=== PATIENT | female | born 1975 | race Two or more races ===

== ENCOUNTER 2024-10-26 10:02 | Outpatient (REF) | payer MEDICAID, SELFPAY ==
[2024-10-26 10:59] LABS: MANUAL DIFF FLAG NO
[2024-10-26 11:12] LABS: Basophils Percent Auto 0.4 % (0-2); Eosinophils Absolute Auto 0.4 X10*3/uL (0.0-0.4); Eosinophils Percent Auto 6.1 % (0-4); Hematocrit 35.1 % (37.0-47.0); Hemoglobin 11.2 g/dl (12.0-16.0); Imm Gran Abs Auto 0.01 X10*3/uL (0.00-0.03); Imm Gran Pct Auto 0.1 % (0.0-0.4); Lymphocytes Absolute Auto 2.2 X10*3/uL (1.2-4.9); Lymphocytes Percent Auto 32.7 % (20-40); Mean Corpuscular HGB Conc 31.9 g/dl (31.0-35.0); Mean Corpuscular Hemoglobin 28.2 pg (27.0-33.0); Mean Corpuscular Volume 88.4 fL (80.0-98.0); Mean Platelet Volume 11.3 fL (9.4-12.3); Monocytes Absolute Auto 0.5 X10*3/uL (0.1-1.2); Monocytes Percent Auto 6.7 % (2-11); Neutrophils Absolute Auto 3.7 x10*3/uL (2.0-8.3); Platelet Count 366 X10*3/uL (160-400); Red Blood Count 3.97 X10*6/uL (4.20-5.50); Red Cell Distribution Width 12.8 % (11.0-16.0); White Blood Count 6.8 X10*3/uL (4.8-10.8)
--- OUTSIDE RECORDS SUMMARY | 2024-10-26 11:15 | XMS_ITS | Encounter Summary ---
Author Organization [employer] Address [address] [place] [address] Care Team Providers Care Improvement Director Name Role Phone Name, Pancho AGUILAR Primary Care Provider [phone] Encounter Details Date Type Department Care Team (Latest Contact Info) Description 10/24/2024 Travel Social History Tobacco Use Types Packs/Day Years Used Date Smoking Tobacco: Every Day Cigarettes Smokeless Tobacco: Never Alcohol Use Standard Drinks/Week Comments Never 0 (1 standard drink = 0.6 oz pur e alcohol) Depression Answer Date Recorded Patient Health Questionnaire-9 Score 10 10/24/2024 Patient Health Questionnaire-9 Score 10 10/24/2024 Last PHQ-9: Questionnaire Data Not on file 0 10/24/2024 Housing Stability Answer Date Recorded What is your housing situation today? I have amador ortiz 10/11/[address] you li ve. Do you have problems with any of the following? None of the above 10/11/2024 Food Insecurity Answer Date Recorded Within the past 12 months, y ou worried that your food would run out before you got money to buy more: Never True 10/11/2024 Within the past 12 months,th e food you bought just didn't last and you didn't have enough money to get more: Never True Transportation Answer Date Recorded In the past 12 months, has l ack of transportation kept you from medical appts, meetings, work or from getting things needed for daily living? No 10/11/2024 Utilities Answer Date Recorded In the past 12 months, has t he electric, gas, oil or water company threatened to shut off services in your home? No 10/11/2024 Depression Answer Date Recorded Patient Health Questionnaire-2 Score 3 10/24/2024 Internet Access Answer Date Recorded Internet Access Q1 Yes 10/11/2024 Internet Access Q2 Not on file 10/11/2024 Comments Unknown Sex and Gender Information Value Date Recorded Sex Assigned at Female 08/18/2024 9:22 AM EST Legal Sex Female 10:39 AM EST Gender Identity Female 08/18/2024 9:26 AM EST Sexual Orientation Don't know 08/18/2024 9: 26 AM EST documented as of this encounter Plan of Treatment Upcoming Encounters Date Type Department Care Team (Late st Contact Info) Description 02/15/2025 3:30 PM EDT Office Visit [facility] [address] [place] [address] Name, MD Pancho [address] [place] [address] documented as of this encounter Visit Diagnoses Not on filedocumented in this encounter Additional Health Concerns Assessment Noted Time PHQ-9 Depression Total Score: 10 025 2:47 PM EDT documented as of this encounter Care Teams Improvement Director Relationship Specialty Start Date End Date Name, MD Pancho [address] [place] [id number] PCP - General Internal Medicine 10/24/24 documented as of this encounter
--- OUTSIDE RECORDS SUMMARY | 2024-10-26 11:15 | XMS_ITS | Clinical Summary ---
Author Organization [employer] Address [address] [facility] [address] [place] [address] Care Team Providers Care Dry Wall Plasterer Name Role Phone Name, Pancho AGUILAR Primary Care Provider [phone] Allergies Active Allergy Reactions Criticality Noted Date Comments Fish-Derived Products Other 04/07/2024 Peanut-Containing Drug Products Other 03/22 Medications * This document contains information received from the source organization and may not represent a complete record from that organization. topiramate (Topamax) 100 MG tablet Take 100 mg by mouth 2 times daily. Active QUEtiapine (SEROquel) 100 MG tablet Take 100 mg by mouth in the evening. Active cloNIDine (Catapres) 0.1 MG tablet Take 0.1 mg by mouth 2 times daily. Active amLODIPine (Norvasc) 10 MG tablet Take 10 mg by mouth Once per day. Active atorvastatin (Lipitor) 40 MG tablet Take 40 mg by mouth Once per day. 5 Active omeprazole (PriLOSEC) [address] capsule Take 40 mg by mouth Once per day. Active methadone (Dolophine) 10 MG/5ML solutionIndicat ions:Substance dependence (CMS/HCC) Take 80 mL (160 mg) by mouth Once per day for 5 days. [facility] 10/30/19 25 Active albuterol 108 (90 Base) MCG/ACT inhaler Inhale 2 puffs every 4 (four) hours if needed. 5 Active albuterol (2.5 MG/3ML) 0.083% nebulizer solution Inhale 2.5 mg every 6 (six) hours if needed. 5 Active albuterol (2.5 MG/3ML) 0.083% nebulizer solution Take 3 mL (2.5 mg) by nebulization every 6 (six) hours if needed for wheezing. 75 mL 10/25/19 Active fluticasone furoate (Arnuity Ellipta) 100 MCG/ACT inhaler Inhale 1 puff Once per day. Rinse mouth with water after use to reduce aftertaste and incidence of candidiasis. Do not swallow. 1 each 10/25/19 Active lidocaine (Lidoderm) 5 % patch Apply 1 patch topically Once per day. Remove & discard patch within 12 hours or as directed by MD. 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 Date Type Department Care Team Description 10/24/2024 2:00 PM EDT Office Visit [facility] MEDICINE [address] [place] [address] Pancho Cueto MD Moderate persistent asthma without complication (Primary Dx); Morbid obesity (CMS/HCC); Substance dependence (CMS/HCC); Seizure (CMS/HCC); Mood disorder (CMS/HCC); Acute low back pain with left-sided sciatica, unspecified back pain laterality 10/24/2024 Travel 10/21/[address] [facility] [address] [place] [address] Melany Perera MA chart prep 10/11/[address] [facility] [address] [place], [place] [phone] Pancho Cueto MD Pre-visit Planning (SDOH negative, Tobacco screening negative.) 09/21/2024 Population Health Risk Score Community [facility] ([facility]) Department [address] [phone] Provider, Population Health Generic 08/12/2024 Patient Outreach [facility] [address] [place] [address] Constance Schuster Recovery Supports 08/04/2024 Patient Outreach [facility] [address] [place] [address] Sarita John Recovery Supports 08/04/2024 Patient Outreach [facility] [address] [place] [address] Bong Rosales Recovery Supports 08/02/2024 Patient Outreach [facility] [address] [place] [address] John Stein Recovery Supports from Last 3 Months Social History Tobacco Use Types Packs/Day Years Used Date Smoking Tobacco: Every Day Cigarettes Smokeless Tobacco: Never Tobacco Cessation:Ready to Q uit: Not Asked; Counseling Given: Not Answered Alcohol Use Standard Drinks/Week Comments Never 0 (1 standard drink = 0.6 oz pur e alcohol) Depression Answer Date Recorded Patient Health Questionnaire-9 Score 10 10/24/2024 Patient Health Questionnaire-9 Score 10 10/24/2024 Last PHQ-9: Questionnaire Data Not on file 0 10/24/2024 Housing Stability Answer Date Recorded What is your housing situation today? I have amadorluis ortiz 10/11/[address] you [...] Don't know 08/18/2024 9: 26 AM EST Last Filed Vital Signs Vital Sign Reading Time Taken Comments Blood Pressure 135/84 10/24/2024 2:19 PM EDT Pulse 76 10/24/2024 2:19 PM EDT Temperature 36.4 ??C (97.5 ??F) 10/24/2024 2:19 PM ED T Respiratory Rate 12 10/24/2024 2:19 PM EDT Oxygen Saturation 97% 10/24/2024 2:19 PM EDT Inhaled Oxygen Concentration - - Weight 112 kg (248 lb) 10/24/2024 2:19 PM EDT Height 160 cm (5' 3 ) 10/24/2024 2:19 PM EDT Body Mass Index 43.93 10/24/2024 2:19 PM EDT Plan of Treatment Upcoming Encounters Date Type Department Care Team (Late st Contact Info) Description 02/15/2025 3:30 PM EDT Office Visit [facility] [address] [place] [address] Name, MD Pancho [address] [place] [address] Health Maintenance Due Date Last Done Comments CT Colonography 1973 Colonoscopy 1973 Colorectal Cancer Screening 1973 FIT DNA/Cologuard 1973 FIT 1973 FOBT 1973 HIV Screening 1973 Lipid Panel 1973 Sigmoidoscopy 1973 Family Planning (PISQ) 1988 Hepatitis C Screening 1991 DTaP/Tdap/Td Vaccines (1 - Tdap) 1992 Hepatitis A Vaccines (1 of 2 - Risk 2-dose series) 1992 Hepatitis B Vaccines (1 of 3 - 19+ 3-dose series) 1992 Pneumococcal Vaccine: 50+ Years (1 of 2 - PCV) 1992 Pap Smear 1994 Cervical Cancer Screening 2003 HPV/Cotest 2003 Mammogram 2013 Zoster Vaccines (1 of 2) 2023 COVID-19 Vaccine (1 - 2023-2 5 season) 2024 Influenza Vaccine (#1) 2024 SDOH Screening 10/11/2025 10/11/2024 Alcohol/Substance Use Screening 10/24/2025 10/24/2024 Depression Screening 10/24/2025 10/24/2024, 10/24/2024 Tobacco Screening 10/24/2025 10/24/2024 RSV Patients and Patients Aged 60 years or older (1 - 1-dose 75+ series) 2048 HIB Vaccines Aged Out No longer eligi ble based on patient's age to complete this topic HPV Vaccines Aged Out No longer eligi ble based on patient's age to complete this topic IPV Vaccines Aged Out No longer eligi ble based on patient's age to complete this topic Meningococcal Vaccine Aged Out No mamta noreen eligible based on patient's age to complete this topic RSV under 20 months Aged Out No longe r eligible based on patient's age to complete this topic Rotavirus Vaccines Aged Out No longer eligible based on patient's age to complete this topic Procedures Procedure Name Priority Date/Time Associated Diagnosis Comments CBC WITH AUTO DIFFERENTIAL Routine 10/26/2024 10:05 AM EDT Substance dependence (CMS/HCC) Seizure (CMS/HCC) Morbid obesity (CMS/HCC) Mood disorder (CMS/HCC) Moderate persistent asthma without complication Acute low back pain with left-sided sciatica, unspecified back pain laterality from Last 3 Months Results * (ABNORMAL) CBC auto differential (10/26/2024 10:05 AM EDT) White Blood Count 6.8 4.8 - 10.8 X10*3/uL [facility] Red Blood Count 3.97(L) 4.20 - 5.50 X10*6/uL [facility] Hemoglobin 11.2(L) 12.0 - 16.0 g/dl [facility] Hematocrit 35.1(L) 37.0 - 47.0 % [facility] Mean Corpuscular Volume 88.4 80.0 - 98.0 fL [facility] Mean Corpuscular Hemoglobin 28.2 27.0 - 33.0 pg [facility] Mean Corpuscular HGB Conc 31.9 31.0 - 35.0 g/dl [facility] Red Cell Distribution Width 12.8 11.0 - 16.0 % [facility] Platelet Count 366 160 - 400 X10*3/uL [facility] Mean Platelet Volume 11.3 9.4 - 12.3 fL [facility] Neutrophils Percent Auto 54.0 45 - 73 % [facility] Imm Gran Pct Auto 0.1 0.0 - 0.4 % [facility] Lymphocytes Percent Auto 32.7 20 - 40 % [facility] Monocytes Percent Auto 6.7 2 - 11 % [facility] Eosinophils Percent Auto 6.1(H) 0 - 4 % [facility] Basophils Percent Auto 0.4 0 - 2 % [facility] NRBC Pct Auto 0.0 0.0 - 0.2 /100WBC [facility] Neutrophils Absolute Auto 3.7 2.0 - 8.3 x10*3/uL [facility] Imm Gran Abs Auto 0.01 0.00 - 0.03 X10*3/uL [facility] Lymphocytes Absolute Auto 2.2 1.2 - 4.9 X10*3/uL [facility] Monocytes Absolute Auto 0.5 0.1 - 1.2 X10*3/uL [facility] Eosinophils Absolute Auto 0.4 0.0 - 0.4 X10*3/uL [facility] Basophils Absolute Auto 0.0 0.0 - 0.2 X10*3/uL [facility] NRBC Abs Auto 0.000 0.0 - 0.012 X10*3/uL [facility] Blood Venous blood specimen / Unknown 10/26/2024 10:05 AM EDT 10/26/2024 10:57 AM EDT us Pancho Cueto MD LAB BLOOD ORDERABLES Final Resul t [facility] [address] [place] [address] [phone] from Last 3 Months Insurance [facility] C[facility] Care Teams Dry Wall Plasterer Relationship Specialty Start Date End Date Name, MD Pancho [address] [place] [address] PCP - General Internal Medicine 10/24/24
--- OUTSIDE RECORDS SUMMARY | 2024-10-26 11:15 | XMS_ITS | Encounter Summary ---
Author Organization [employer] Address [address] [facility] [address] [place] [address] Care Team Providers Care Sap Solution Manager Consultant Name Role Phone Name, Pancho AGUILAR Primary Care Provider [phone] Reason for Visit * Reason Comments New patient visit Encounter Details Date Type Department Care Team (Late st Contact Info) Description 10/24/2024 2:00 PM EDT Office Visit [facility] MED[facility] [address] [place], [place] [phone] Name, MD Pancho [address] [place], [place] [phone] Moderate persistent asthma without complication (Primary Dx); Morbid obesity (CMS/HCC); Substance dependence (CMS/HCC); Seizure (CMS/HCC); Mood disorder (CMS/HCC); Acute low back pain with left-sided sciatica, unspecified back pain laterality Social History Tobacco Use Types Packs/Day Years [...] AM EST documented as of this encounter Last Filed Vital Signs Vital Sign Reading [...] Mass Index 43.93 10/24/2024 2:19 PM EDT documented in this encounter Progress Notes * Pancho Cueto MD - 10/24/2024 2:00 PM EDT Subjective Patient ID: Deanne Underwood is a 49 y.o. female who presents for New patient visit. Patient comes today for the first time to see me. She is transferring her care from a PCP in [facility] and we do not have her previous medical records. The patient has a personal history of mooddisorder, opiate dependence on methadone treatment, morbid obesity, chronic back pain, chronic heartburn, history of seizure disorder, asthma. The patient is following at [facility], she goes to the methadone clinic, she has a prescribing psychiatrist and she has an upcoming appointment with her neurologist. I updated her medication list. She is vaping nicotine. She denies use of alcohol. She has not used illicits in more than a year. She is not sexually active at the moment. She has 2 children that lives with her former partner. Today she is concerned about significant weight gain and one of her medications is Seroquel. She also asked me to refill her albuterol. She has been using albuterol up to 3 times a day. She isnot using a preventive inhaler. She asked me to prescribe her lidocaine patches she applies to the low back for chronic back pain. Review of Systems Constitutional: Negative for chills and fever. HENT: Negative for sore throat. Respiratory: Positive for cough and wheezing. Negative for shortness of breath. Cardiovascular: Negative for chest pain, palpitations and leg swelling. Gastrointestinal: Negative for abdominal pain. Musculoskeletal: Positive for back pain. Visit Vitals BP 135/84 (BP Location: Left arm, Patient Position: Sitting, BP Cuff Size: Large adult) Pulse 76 Temp 97.5 ??F (36.4 ??C) (Temporal) Resp 12 Ht 5' 3 (1.6 m) Wt 248 lb (112 kg) SpO2 97% BMI 43.93 kg/m?? Smoking Status Every Day BSA 2.23 m?? Objective Physical Exam Constitutional: Appearance: Normal appearance. She is obese. Cardiovascular: Rate and Rhythm: Normal rate and regular rhythm. Heart sounds: No murmur heard. No gallop. Pulmonary: Effort: Pulmonary effort is normal. No respiratory distress. Breath sounds: Normal breath sounds. No wheezing. Musculoskeletal: Right lower leg: No edema. Left lower leg: No edema. Neurological: Mental Status: She is alert. Assessment/Plan Diagnoses and all orders for this visit: Moderate persistent asthma without complication Comments: I recommend the patient to try to quit vaping. Continue rescue albuterol. Prescribed the patient Arnuity for daily use. Orders: - CBC auto differential; Future - Comprehensive Metabolic Panel; Future - Hemoglobin A1c; Future - TSH W/Reflex to FT4; Future - Lipid Panel, Standard; Future Morbid obesity ([facility]) Comments: I recommended evaluation with fasting blood work listed below. No personal history of pancreatitis no personal or family h/o thyroid CA Orders: - CBC auto differential; Future - Comprehensive Metabolic Panel; Future - Hemoglobin A1c; Future - TSH W/Reflex to FT4; Future - Lipid Panel, Standard; Future Substance dependence ([facility]) Comments: She is congratulated on quitting heroin. She is encouraged to continue following with her methadone clinic and [facility]. She has Narcan at home. She tells me she recently had negative STD testing done elsewhere. Orders: - methadone (Dolophine) 10 MG/5ML solution; Take 80 mL (160 mg) by mouth Once per day for [address] [facility] - CBC auto differential; Future - Comprehensive Metabolic Panel; Future - Hemoglobin A1c; Future - TSH W/Reflex to FT4; Future - Lipid Panel, Standard; Future Seizure ([facility]) Comments: Patient is currently on Topamax that she is recommended to continue. She is encouraged to keep upcoming appointment with neurology. She does not drive. She denies any recent seizures. Orders: - CBC auto differential; Future - Comprehensive Metabolic Panel; Future - Hemoglobin A1c; Future - TSH W/Reflex to FT4; Future - Lipid Panel, Standard; Future Mood disorder ([facility]) Comments: . Orders: - CBC auto differential; Future - Comprehensive Metabolic Panel; Future - Hemoglobin A1c; Future - TSH W/Reflex to FT4; Future - Lipid Panel, Standard; Future Acute low back pain with left-sided sciatica, unspecified back pain laterality Comments: Musculoskeletal low back pain. I agreed to prescribe her lidocaine patches. Orders: - CBC auto differential; Future - Comprehensive Metabolic Panel; Future - Hemoglobin A1c; Future - TSH W/Reflex to FT4; Future - Lipid Panel, Standard; Future Other orders - albuterol (2.5 MG/3ML) 0.083% nebulizer solution; Take 3 mL (2.5 mg) by nebulization every 6 (six) hours if needed for wheezing. - fluticasone furoate (Arnuity Ellipta) 100 MCG/ACT inhaler; Inhale 1 puff Once per day. Rinse mouth with water after use to reduce aftertaste and incidence of candidiasis. Do not swallow. - lidocaine (Lidoderm) 5 % patch; Apply 1 patch topically Once per day. Remove & discard patch within 12 hours or as directed by . documented in this encounter Plan of Treatment Upcoming Encounters Date Type Department Care Team (Late st Contact Info) Description 02/15/2025 3:30 PM EDT Office Visit [facility] MEDICINE [address] [place] [address] Pancho Cueto MD [address] [place] [address] Scheduled Orders Name Type Priority Associated Diagnoses Orde r Schedule Comprehensive Metabolic Panel Lab Routine Substance dependence (CMS/HCC) Seizure (CMS/HCC) Morbid obesity (CMS/HCC) Mood disorder (CMS/HCC) Moderate persistent asthma without complication Acute low back pain with left-sided sciatica, unspecified back pain laterality Expected: 10/24/2024 (Approximate), Expires: 10/24/2025 Hemoglobin A1c Lab Routine Substance dependence (CMS/HCC) Seizure (CMS/HCC) Morbid obesity (CMS/HCC) Mood disorder (CMS/HCC) Moderate persistent asthma without complication Acute low back pain with left-sided sciatica, unspecified back pain laterality Expected: 10/24/2024 (Approximate), Expires: 10/24/2025 TSH W/Reflex to FT4 Lab Routine Substance dependence (CMS/HCC) Seizure (CMS/HCC) Morbid obesity (CMS/HCC) Mood disorder (CMS/HCC) Moderate persistent asthma without complication Acute low back pain with left-sided sciatica, unspecified back pain laterality Expected: 10/24/2024 (Approximate), Expires: 10/24/2025 Lipid Panel, Standard Lab Routine Substance dependence (CMS/HCC) Seizure (CMS/HCC) Morbid obesity (CMS/HCC) Mood disorder (CMS/HCC) Moderate persistent asthma without complication Acute low back pain with left-sided sciatica, unspecified back pain laterality Expected: 10/24/2024 (Approximate), Expires: 10/24/2025 documented as of this encounter Procedures Procedure Name Priority Date/Time Associated Diagnosis Comments CBC WITH AUTO DIFFERENTIAL Routine 10/26/2024 10:05 AM EDT Substance dependence (CMS/HCC) Seizure (CMS/HCC) Morbid obesity ([facility]/HCC) Mood disorder ([facility]) Moderate persistent asthma without complication Acute low back pain with left-sided sciatica, unspecified back pain laterality documented in this encounter Results * (ABNORMAL) CBC auto differential (10/26/2024 10:05 AM EDT) White Blood Count 6.8 4.8 - 10.8 X10*3/uL [facility] Red Blood Count 3.97(L) 4.20 - 5.50 X10*6/uL [facility] Hemoglobin 11.2(L) 12.0 - 16.0 g/dl [facility] Hematocrit 35.1(L) 37.0 - 47.0 % [facility] Mean Corpuscular Volume 88.4 80.0 - 98.0 fL [facility] Mean Corpuscular Hemoglobin 28.2 27.0 - 33.0 pg [facility] Mean Corpuscular HGB Conc 31.9 31.0 - 35.0 g/dl [facility] Red Cell Distribution Width 12.8 11.0 - 16.0 % [facility] Platelet Count 366 160 - 400 X10*3/uL [facility] Mean Platelet Volume 11.3 9.4 - 12.3 fL [facility] Neutrophils Percent Auto 54.0 45 - 73 % [facility] Imm Gran Pct Auto 0.1 0.0 - 0.4 % [facility] Lymphocytes Percent Auto 32.7 20 - 40 % [facility] Monocytes Percent Auto 6.7 2 - 11 % [facility] Eosinophils Percent Auto 6.1(H) 0 - 4 % [facility] Basophils Percent Auto 0.4 0 - 2 % [facility] NRBC Pct Auto 0.0 0.0 - 0.2 /100WBC [facility] Neutrophils Absolute Auto 3.7 2.0 - 8.3 x10*3/uL [facility] Imm Gran Abs Auto 0.01 0.00 - 0.03 X10*3/uL [facility] Lymphocytes Absolute Auto 2.2 1.2 - 4.9 X10*3/uL [facility] Monocytes Absolute Auto 0.5 0.1 - 1.2 X10*3/uL [facility] Eosinophils Absolute Auto 0.4 0.0 - 0.4 X10*3/uL [facility] Basophils Absolute Auto 0.0 0.0 - 0.2 X10*3/uL [facility] NRBC Abs Auto 0.000 0.0 - 0.012 X10*3/uL [facility] Blood Venous blood specimen / Unknown 10/26/2024 10:05 AM EDT 10/26/2024 10:57 AM EDT Pancho Cueto MD LAB BLOOD ORDERABLES Final Resul t [facility] [address] [place] [phone] documented in this encounter Visit Diagnoses Diagnosis Moderate persistent asthma without complication- Primary Morbid obesity (CMS/HCC) Morbid obesity Substance dependence (CMS/HCC) Unspecified drug dependence, unspecified abuse Seizure (CMS/HCC) Other convulsions Mood disorder (CMS/HCC) Unspecified episodic mood disorder Acute low back pain with left-sided sciatica, unspecified back pain laterality documented in this encounter Additional Health Concerns Assessment Noted Time PHQ-9 Depression Total Score: 10 025 2:47 PM EDT documented as of this encounter Care Teams Sap Solution Manager Consultant Relationship Specialty Start Date End Date Name, MD Pancho [address] [place] [phone] PCP - General Internal Medicine 10/24/24 documented as of this encounter
--- OUTSIDE RECORDS SUMMARY | 2024-10-26 11:15 | XMS_ITS | Encounter Summary ---
Author Organization [employer] Address [address] [facility] 7t [place] [address] Care Team Providers Care Dray Truck Driver Name Role Phone Unavailable Primary Care Provider Unavailabl e Reason for Visit * Reason Onset Date Comments chart prep 10/21/2024 Encounter Details Date Type Department Care Team ([facility] st Contact Info) Description 10/21/2024 Telephone [facility] [address] [place], [place] [phone] Melany Perera MA chart prep Social History Tobacco Use Types Packs/Day Years Used Date Smoking Tobacco: Never Assessed Housing Stability Answer Date Recorded What is [...] off services in your home? No 10/11/2024 Internet Access Answer Date Recorded Internet Access Q1 Yes 10/11/2024 Internet Access Q2 Not on file 10/11/2024 Comments Unknown Sex and Gender Information Value Date Recorded Sex Assigned at Female 08/18/2024 9:22 AM EST Legal Sex Female 10:39 AM EST Gender Identity Female 08/18/2024 9:26 AM EST Sexual Orientation Don't know 08/18/2024 9: 26 AM EST documented as of this encounter Miscellaneous Notes * Telephone Encounter - Melany Perera MA - 10/21/2024 2:14 PM EDT Chart Prep Labs: not applicable Images: not applicable Referrals: not applicable Vaccines due: Flu, Tdap, Hep B, Hep A, and Zoster Screenings: mammogram and pap smear Overdue care gaps: SBIRT, PHQ-9, EVETTE-7, and Disability screen documented in this encounter Plan of Treatment Upcoming Encounters Date Type Department Care Team (Late st Contact Info) Description 02/15/2025 3:30 PM EDT Office Visit [facility] [address] [place] [address] Name, MD Pancho [address] [place] [address] documented as of this encounter Visit Diagnoses Not on filedocumented in this encounter
[2024-10-26 11:16] LABS: Estimated Average Glucose 128 mg/dL; Hemoglobin A1C 128.7411 umol/L; Hemoglobin A1c % 6.1 % (<6.0); Total Hemoglobin (HGBA1C) 2983.5579 umol/L
[2024-10-26 12:15] LABS: Alanine Aminotransferase 21 U/L (0-31); Albumin Level 3.8 g/dL (3.5-5.0); Anion Gap 10 (12-20); Aspartate Amino Transferase 32 U/L (5-31); Calcium 9.6 mg/dL (8.4-10.2); Carbon Dioxide 28 mmol/L (22-29); Chloride 106 mmol/L (96-108); Cholesterol 147 mg/dL (<200); Glucose Random 85 mg/dL (60-115); Sodium 140 mmol/L (135-145); Total Protein 7.3 g/dL (6.5-8.0); Triglycerides 107 mg/dL (<150)
[2024-10-26 12:23] LABS: Alkaline Phosphatase 132 U/L (39-117); Bilirubin Total 0.2 mg/dL (0.0-1.0); Blood Urea Nitrogen 11 mg/dL (9-16); Estimated Glomerular Filt Rate > 60; HDL Cholesterol 49 mg/dL (>40); LDL Cholesterol Calculated 77 mg/dL (<100)
[2024-10-26 12:31] LABS: TSH reflex Free T4 1.85 uIU/mL (0.32-4.0)
== END 2024-10-26 10:03 | disposition home or self-care (01) ==
LOC: HO.HHCL 10:02
PROVIDERS: Visit Provider Internal Medicine Geriatric Medicine
DX: J45.40 Moderate persistent asthma, uncomplicated (principal); F19.20 Other psychoactive substance dependence, uncomplicated; R56.9 Unspecified convulsions; E66.01 Morbid (severe) obesity due to excess calories; M54.42 Lumbago with sciatica, left side; F39 Unspecified mood [affective] disorder
CPT/HCPCS: 36415; 80053; 80061; 83036; 84443; 85025

== ENCOUNTER 2025-02-15 15:27 | Outpatient (REF) | payer MEDICAID, SELFPAY ==
--- NOTE | ~2025-02-15 | XR_ITS ---
EXAMINATION: XR KNEE, LEFT CLINICAL INFORMATION: PAIN COMPARISON: None available. TECHNIQUE: Four views of the left knee. FINDINGS: There is mild narrowing of the medial joint space. Tricompartmental marginal osteophytes are largest along the medial joint line. Joint effusion is visible. XR/XR knee LT 4V IMPRESSION: Mild osteoarthritis left knee. Electronically signed by: Uday Mittal MD 02/15/2025 03:56 PM EDT
--- OUTSIDE RECORDS SUMMARY | 2025-02-15 15:30 | XMS_ITS | Encounter Summary ---
Author Organization [employer] [facility] Address [address] [facility] 7t [place] [address] Care Team Providers Care Associate Financial Planner Name Role Phone Pancho Cueto MD Primary Care Provider [phone] Reason for Referral * Consultation (Routine) - Pending Review Specialty Diagnoses / Procedures Referred By Neva t Referred To Contact Gastroenterology Diagnoses Screen for colon cancer Pancho Cueto MD [address] [place] [address] Phone: tel: fax: Referral ID Status Reason Start Date Expiration Date Visits Requested Visits Authorized [id number] Pending Review Specialty Services Required 02/15/2025 02/15/2026 1 1 * Consultation (Routine) - Authorized Specialty Diagnoses / Procedures Referred By Neva t Referred To Contact Midwifery Diagnoses Screening for cervical cancer Pancho Cueto MD [address] [place] [address] Phone: tel: fax: Aniyah Mehta CNM [address] [place] [address] Phone: tel: fax: Referral ID Status Reason Start Date Expiration Date Visits Requested Visits Authorized [id number] Authorized Consult and Treat 02/15/2025 02/15/2026 1 1 * Imaging (Routine) - Authorized Specialty Diagnoses / Procedures Referred By Neva t Referred To Contact Radiology Diagnoses Encounter for screening for malignant neoplasm of breast, unspecified screening modality Procedures BI Mammogram Screening Tomosynthesis Bilateral Pancho Cueto MD [address] [place] [address] Phone: tel: fax: [address] Phone: tel: fax: Referral ID Status Reason Start Date Expiration Date V isits Requested Visits Authorized [id number] Authorized 02/15/2025 02/15/2026 1 1 Reason for Visit * Reason Comments Follow-up Encounter Details Date Type Department Care Team (Late st Contact Info) Description 02/15/2025 3:30 PM EDT Office Visit [facility] [address] [place] [address] Pancho Cueto MD [address] [place] [address] Hypertension, unspecified type (Primary Dx); Gastroesophageal reflux disease, unspecified whether esophagitis present; Chronic pain of left knee; Health care maintenance; Encounter for screening for malignant neoplasm of breast, unspecified screening modality; Screening for cervical cancer; Screen for colon cancer; Encounter for immunization Social History Tobacco Use Types Packs/Day Years [...] Sign Reading Time Taken Comments Blood Pressure 132/84 02/15/2025 2:43 PM EDT Pulse 94 02/15/2025 2:43 PM EDT Temperature 35.9 C (96.6 F) 02/15/2025 2:43 PM EDT Respiratory Rate 18 02/15/2025 2:43 PM EDT Oxygen Saturation 98% 02/15/2025 2:43 PM EDT Inhaled Oxygen Concentration - - Weight 107 kg (236 lb 9.6 oz) 02/15/2025 2:43 PM EDT Height 160 cm (5' 3 ) 02/15/2025 2:43 PM EDT Body Mass Index 41.91 02/15/2025 2:43 PM EDT documented in this encounter Progress Notes * Pancho Cueto MD - 02/15/2025 3:30 PM EDT Subjective Patient ID: Deanne Underwood is a 49 y.o. female who presents for Follow-up. Patient comes for a follow-up visit. She has lost significant weight compared to her previous visitwith dietary changes and exercise and is congratulated. Unfortunately she is complaining of left knee pain for about 3 months. She tells me that she was trying to run and she felt like the left knee gave out and she fell. Since then she is having left anterior knee pain precipitated by standing and walking. She also describes left knee swelling on and off. Pain is described as occasionally severe. She tells me she has a remote history of fracture of the left knee. On review of health maintenance schedule she is due for a mammogram, Pap smear and colonoscopy and she agreed with referral. She agreed with Tdap vaccination today. She continues to do well on methadone. She has not used heroin in more than a year. She is trying to cut down on her smoking and she is congratulated and encouraged to continue. Review of Systems Constitutional: Negative for chills and fever. HENT: Negative for sore throat. Respiratory: Negative for cough, shortness of breath and wheezing. Cardiovascular: Negative for chest pain, palpitations and leg swelling. Gastrointestinal: Negative for abdominal pain. Musculoskeletal: See HPI Objective Vitals: 02/15/25 1443 BP: 132/84 BP Location: Left arm Patient Position: Sitting BP Cuff Size: Thigh Pulse: 94 Resp: 18 Temp: 96.6 ??F (35.9 ??C) TempSrc: Temporal SpO2: 98% Weight: 236 lb 9.6 oz (107 kg) Height: 5' 3 (1.6 m) Physical Exam Constitutional: Appearance: Normal appearance. Cardiovascular: Rate and Rhythm: Normal rate and regular rhythm. Heart sounds: No murmur heard. No gallop. Pulmonary: Effort: Pulmonary effort is normal. No respiratory distress. Breath sounds: Normal breath sounds. No wheezing. Musculoskeletal: Right knee: Normal. Left knee: Decreased range of motion. Tenderness present over the patellar tendon. Right lower leg: No edema. Left lower leg: No edema. Comments: Antalgic gait Neurological: Mental Status: She is alert. Assessment/Plan Diagnoses and all orders for this visit: Hypertension, unspecified type Comments: I refilled her amlodipine Gastroesophageal reflux disease, unspecified whether esophagitis present Comments: I refilled her omeprazole Chronic pain of left knee Comments: The patient has been icing his knee after walking and she is encouraged to continue doing this. She is encouraged to continue her efforts to lose weight She was prescribed Celebrex for pain Evaluation with left knee x-ray I suggested referral to PT but she wants to wait for now. Orders: - XR Knee 3 Views Left; Future Health care maintenance Comments: I recommended referral to mammogram Referral to CRITICAL CARE NURSE SPECIALIST for Pap smear Referral to GI for screening colonoscopy Continue her efforts to lose weight Continue her efforts to quit smoking Tdap vaccine today and hopefully PCV 20 next visit Encounter for screening for malignant neoplasm of breast, unspecified screening modality - BI Mammogram Screening Tomosynthesis Bilateral; Future Screening for cervical cancer - Referral to Gynecology (Aniyah); Future Screen for colon cancer - Referral to Gastroenterology; Future Encounter for immunization - TDAP VACCINE 7 yrs + Other orders - amLODIPine (Norvasc) 10 MG tablet; Take 1 tablet (10 mg) by mouth Once per day. - omeprazole (PriLOSEC) [address] capsule; Take 2 capsules (40 mg) by mouth Once per day. - celecoxib (CeleBREX) 200 MG capsule; Take 1 capsule (200 mg) by mouth 2 times daily for 20 days. Future Appointments Date Time Provider Department Center 02/15/2025 3:30 PM Pancho Cueto MD MEDICINE [facility] 05/08/2025 2:30 PM Pancho Cueto MD [facility] documented in this encounter Plan of Treatment Upcoming Encounters Date Type Department Care Team (Late st Contact Info) Description 05/08/2025 2:30 PM EST Office Visit [facility] [address] [place] [phone] Pancho Cueto MD [address] [place] [address] Scheduled Orders Name Type Priority Associated Diagnoses Orde r Schedule BI Mammogram Screening Tomosynthesis Bilateral Imaging Routine Encounter for screening for malignant neoplasm of breast, unspecified screening modality Expected: 02/15/2025, Expires: 04/17/2026 Scheduled Referrals Name Type Priority Associated Diagnoses Order Schedule Referral to Gynecology (Aniyah) Outpatient Referral Routine Screening for cervical cancer Expected: 02/15/2025 (Approximate), Expires: 02/15/2026 Referral to Gastroenterology Outpatient Referral Routine Screen for colon cancer Expected: 02/15/2025 (Approximate), Expires: 02/15/2026 documented as of this encounter Procedures Procedure Name Priority Date/Time Associated Diagnosis Comments XR KNEE 4+ VIEWS LEFT Routine 02/15/2025 2:58 PM EDT documented in this encounter Results * XR Knee 4+ Views Left (02/15/2025 2:58 PM EDT) Anatomical Region Laterality Modality Lower Extremities, Knee Left Radiogra phic Imaging 02/15/2025 2:58 PM EDT Narrative 02/15/2025 4:00 PM EDT [address] [address] XRay Report Signed Patient: Deanne Underwood MR#: [id number] : 1975 Acct:[id number] Age/Sex: 49 / F ADM Date: 02/15/25 Loc: HO.HHCX Attending Dr: Pancho Cueto MD Ordering Physician: Pancho Cueto MD Date of Service: 02/15/25 Procedure(s): XR knee LT 4V Accession Number(s): [id number] cc: Pancho Cueto MD EXAMINATION: XR KNEE, LEFT CLINICAL INFORMATION: PAIN COMPARISON: None available. TECHNIQUE: Four views of the left knee. FINDINGS: There is mild narrowing of the medial joint space. Tricompartmental marginal osteophytes are largest along the medial joint line. Joint effusion is visible. XR/XR knee LT 4V IMPRESSION: Mild osteoarthritis left knee. Electronically signed by: Uday Mittal MD 02/15/2025 03:56 PM EDT Dictated By: Uday Mittal MD Signed By: <Electronically signed by Uday Mittal MD in OV> 02/15/25 1556 DD/ 1458 TD/TT: 02/15/25 1500 Program Director/Music Director: Procedure Note Mohsenter, Image - 02/15/[address] [address] XRay Report Signed Patient: Deanne UnderwoodMR#: [id number] : 1975Acct:[id number] Age/Sex: 49 / FADM Date: 02/15/25 Loc: HO.HHCX Attending Dr: Pancho Cueto MD Ordering Physician: Pancho Cueto MD Date of Service: 02/15/25 Procedure(s): XR knee LT 4V Accession Number(s): [id number] cc: Pancho Cueto MD EXAMINATION: XR KNEE, LEFT CLINICAL INFORMATION: PAIN COMPARISON: None available. TECHNIQUE: Four views of the left knee. FINDINGS: There is mild narrowing of the medial joint space. Tricompartmental marginal osteophytes are largest along the medial joint line. Joint effusion is visible. XR/XR knee LT 4V IMPRESSION: Mild osteoarthritis left knee. Electronically signed by: Uday Mittal MD 02/15/2025 03:56 PM EDT RP Dictated By: Uday Mittal MD Signed By: <Electronically signed by Uday Mittal MD in OV> 02/15/25 1556 DD/ 1458 TD/TT: 02/15/25 1500 Program Director/Music Director: Pancho Cueto MD IMG XR PROCEDURES Final Result documented in this encounter Visit Diagnoses Diagnosis Hypertension, unspecified type- Primary Gastroesophageal reflux disease, unspecified whether esophagitis present Chronic pain of left knee Encounter for screening for malignant neoplasm of breast, unspecified screening modality Screening for cervical cancer Screening for malignant neoplasm of the cervix documented in this encounter Additional Health Concerns Assessment Noted Time PHQ-9 Depression Total Score: 10 025 2:47 PM EDT documented as of this encounter Care Teams Associate Financial Planner Relationship Specialty Start Date End Date Pancho Cueto MD [address] [place] [address] PCP - General Internal Medicine 10/24/24 documented as of this encounter
--- OUTSIDE RECORDS SUMMARY | 2025-02-15 16:43 | XMS_ITS | Clinical Summary ---
Author Organization [facility] Address [address] [place] [address] Phone Care Team Providers Care Make Up Man Name Role Phone StefanyLaura Primary Care Provider [phone] Allergies Active Allergy Reactions Criticality Noted Date Comments Fish Containing Products Other 04/07/2024 Peanut Other 04/07/2024 Medications amLODIPine (NORVASC) 10 mg tablet Take 1 tablet (10 mg total) by mouth 1 (one) time each day. Active cloNIDine (CATAPRES) 0.1 mg tablet Take 1 tablet (0.1 mg total) by mouth 2 (two) times a day. Active gabapentin (NEURONTIN) 300 mg capsule Take 1 capsule (300 mg total) by mouth 2 (two) times a day. Active methadone HCl (METHADONE ORAL) Take 100 mg by mouth 1 (one) time each day. 40 MG disintegrating tablet Active QUEtiapine (SEROquel) 100 mg tablet Take 1 tablet (100 mg total) by mouth 1 (one) time each day in the evening. Active topiramate (TOPAMAX) 100 mg tablet Take 1 tablet (100 mg total) by mouth 2 (two) times a day. Active polyethylene glycol (Golytely) 236-22.74-6.74 -5.86 gram solution Take 4L by mouth once for one dose. May substitue any PEG. Starting at 6PM the night before your procedure drink 1 8oz glasses at your own pace until you complete half of the gallon. Finish 2nd half of the gallon 5 hours before your procedure. 4000 mL 5 Active bisacodyL (DULCOLAX) 5 mg EC tablet Take 2 tablets by mouth right before beginning bowel prep. See instructions provided by the office 2 tablet 5 Active albuterol 2.5 mg /3 mL (0.083 %) nebulizer solution Take 3 mL (2.5 mg total) by nebulization every 6 (six) hours if needed for wheezing or shortness of breath. 90 mL 5 Active polyethylene glycol (Golytely) 236-22.74-6.74 -5.86 gram solution Take 4L by mouth once for one dose. May substitue any PEG. Starting at 6PM the night before your procedure drink 1 8oz glasses at your own pace until you complete half of the gallon. Finish 2nd half of the gallon 5 hours before your procedure. 4000 mL 5 Active bisacodyL (DULCOLAX) 5 mg EC tablet Take 2 tablets by mouth right before beginning bowel prep. See instructions provided by the office 2 tablet 5 Active nicotine polacrilex (NICORETTE) 2 mg gum 1 each (2 mg total). 4 Active polyethylene glycol (Golytely) 236-22.74-6.74 -5.86 gram solution Take 4L by mouth once for one dose. May substitue any PEG. Starting at 6PM the night before your procedure drink 1 8oz glasses at your own pace until you complete half of the gallon. Finish 2nd half of the gallon 5 hours before your procedure. 4000 mL 5 Active bisacodyL (DULCOLAX) 5 mg EC tablet Take 2 tablets by mouth right before beginning bowel prep. See instructions provided by the office 2 tablet 5 Active albuterol HFA (Ventolin HFA) 90 mcg/actuation inhaler Inhale 2 puffs by mouth every 4 (four) hours if needed for wheezing or shortness of breath. 18 g 5 Active atorvastatin (LIPITOR) 40 mg tablet Take 1 tablet (40 mg total) by mouth 1 (one) time each day. 30 tablet 5 Active omeprazole (PriLOSEC) [address] capsule TAKE 2 CAPSULES BY MOUTH DAILY 60 capsule 07/15/202 5 Active Active Problems Problem Noted Date Diagnosed Date Gastroesophageal reflux disease 04/07/2024 Hypertension 04/07/2024 Methadone dependence ([facility] [place] [facility] [place] 04/07/2024 Seizure ([facility] [place], [facility] [place]) 04/07/2024 Substance dependence ([facility] [place], [facility] [place]) 04/07/2024 Encounters Date Type Department Care Team Description 11/16/2024 Telephone Internal [facility] [address] [place] [phone] Laura Mccall DO from Last 3 Months Medical History Medical History Date Comments Seizures ([facility] [place], [facility] [place] DX:Seizures (HCC) Bipolar disorder ([facility] [place]2 4, [facility] [place]28) DX:Bipolar disorder (HCC) GERD (gastroesophageal reflux disease) DX:GERD (gastroesophageal reflux disease) HTN (hypertension) DX:HTN (hyper tension) Family History Medical History Relation Name Comments Breast cancer Aunt Other cancer Sister 1 Diabetes Sister 2 Relation Name Status Comments Aunt Sister 1 Sister 2 Alive Social History Tobacco Use Types Packs/Day Years Used Date Smoking Tobacco: Every Day Alcohol Use Standard Drinks/Week Comments Never 0 (1 standard drink = 0.6 oz pur e alcohol) Comments Unknown Sex and Gender Information Value Date Recorded Sex Assigned at Female 09/09/2024 10:44 AM EDT Legal Sex Female 11:13 PM EST Gender Identity Female 09/09/2024 10:44 AM EDT Sexual Orientation Straight 09/28/2024 1: 18 PM EDT Obstetrics History Last Filed Vital Signs Vital Sign Reading Time Taken Comments Blood Pressure 140/80 04/01/2024 8:54 AM EDT aut o Pulse 80 04/01/2024 8:54 AM EDT Temperature - - Respiratory Rate - - Oxygen Saturation - - Inhaled Oxygen Concentration - - Weight 86.2 kg (190 lb) 09/13/2024 1:00 PM EDT Height 160 cm (5' 3 ) 09/13/2024 1:00 PM EDT Body Mass Index 33.66 09/13/2024 1:00 PM EDT Plan of Treatment Health Maintenance Due Date Last Done Comments Breast Cancer Screening 1975 DTaP,Tdap,and Td Vaccines (1 - Tdap) 1992 Hepatitis A Vaccines (1 of 2 - Risk 2-dose series) 1992 Hepatitis B Vaccines (1 of 3 - 19+ 3-dose series) 1992 Pneumococcal Vaccine: 50+ Years (1 of 2 - PCV) 1992 Cervical Cancer Screening: P ap Smear 1994 Colorectal Cancer Screening: Colonoscopy 05/25/2022 HIV Screening 05/25/2022 Social Influencers of Health Screening 05/25/2022 Zoster Vaccines (1 of 2) 2023 COVID-19 Vaccine (1 - 2023-2 5 season) 2024 Depression Screening 06/22/2024 04/01/2024 Influenza Vaccine (#1) 2025 Hypertension/CHF/CAD Annual BMP Blood Test 04/01/2025 04/01/2024, 04/01/2024 Cholesterol Screening (Lipid Panel) 04/01/2029 04/01/2024, 04/01/2024 Hepatitis C Screening Completed 04/01/2024 HIB Vaccines Aged Out No longer eligi ble based on patient's age to complete this topic HPV Vaccines Aged Out No longer eligi ble based on patient's age to complete this topic IPV Vaccines Aged Out No longer eligi ble based on patient's age to complete this topic MMR Vaccines Aged Out No longer eligi ble based on patient's age to complete this topic Meningococcal ACWY Vaccine Aged Out N o longer eligible based on patient's age to complete this topic Meningococcal B Vaccine Aged Out No l onger eligible based on patient's age to complete this topic RSV Immunization Patients Under 20 months Aged Out No longer eligible b ased on patient's age to complete this topic Varicella Vaccines Aged Out No longer eligible based on patient's age to complete this topic Procedures Procedure Name Priority Date/Time Associated Diagnosis Comments DEPRESSION SCREENING Routine 04/01/2024 HEPATITIS C SCREENING Routine 04/01/2024 ANNUAL BMP BLOOD TEST Routine 04/01/2024 LIPID PANEL Routine 04/01/2024 from Last 3 Months or Most Recently Relevant to Health Maintenance Results * Annual BMP Blood Test (04/01/2024) Pathologist [facility] Annual BMP Blood Test abstracted [facility] Provider MD HEALTH MAINTENANCE Final Result * Depression Screening (04/01/2024) Pathologist [facility] Depression Screening abstracted [facility] Provider HEALTH MAINTENANCE Final Result * Hepatitis C Screening (04/01/2024) [facility] Hepatitis C Screening abstracted [facility] Provider HEALTH MAINTENANCE Final Result * (ABNORMAL) Lipid panel (04/01/2024) [facility] LDL/HDL Ratio 3 0 - 4 Triglycerides 167(A) 0 - 150 mg/dL Cholesterol 242(A) 0 - 200 mg/dL HDL 74 >=40 mg/dL LDL Cholesterol 135(A) 0 - 100 mg/dL Blood Venous blood specimen / Unknown Result [facility] Provider LAB BLOOD ORDERABLES Tricia l Result from Last 3 Months or Most Recently Relevant to Health Maintenance Insurance MEDICAID - [place] Care Teams Make Up Man Relationship Specialty Start Date End Date Laura Mccall DO [address] [place] [address] [facility] - General 03/24/24
--- OUTSIDE RECORDS SUMMARY | 2025-02-15 16:43 | XMS_ITS | Encounter Summary ---
Author Organization [employer] Address [address] [facility] 7t [place] [address] Care Team Providers Care Salesperson Flowers Name Role Phone Name, Pancho AGUILAR Primary Care Provider [phone] Reason for Visit * Reason Onset Date Comments chart prep 02/14/2025 Encounter Details Date Type Department Care Team ([facility] st Contact Info) Description 02/14/2025 Telephone [facility] [address] [place], [place] [phone] Name, MD Pancho [address] [place], [place] [phone] chart prep Social History Tobacco Use Types [...] encounter Miscellaneous Notes * Telephone Encounter - Diane Finney MA - 02/14/2025 2:23 PM EDT Chart Prep Labs: done Images: not applicable Screenings: Colonoscopy , Mammogram, and HIV screening, PAP Vaccines due: Covid Due, Tdap Due, Hep A Due, Hep B Due, PCV20 Due, and Shingles in pharmacy Due Referrals: Not Applicable Overdue care gaps: None documented in this encounter Plan of Treatment Upcoming Encounters Date Type Department Care Team (Late st Contact Info) Description 05/08/2025 2:30 PM EST Office Visit [facility] [address] [place] [phone] Name, MD Pancho [address] [place] [address] documented as of this encounter Visit Diagnoses Not on filedocumented in this encounter Additional Health Concerns Assessment Noted Time PHQ-9 Depression Total Score: 10 025 2:47 PM EDT documented as of this encounter Care Teams Salesperson Flowers Relationship Specialty Start Date End Date NamePancho MD [address] [place] [address] PCP - General Internal Medicine 10/24/24 documented as of this encounter
--- OUTSIDE RECORDS SUMMARY | 2025-02-15 16:43 | XMS_ITS | Encounter Summary ---
Author Organization [employer] Address [address] [facility] [address] [facility] [address] 7[address] [place] [address] Care Team Providers Care Flight Operations Engineer Name Role Phone Name, Pancho AGUILAR Primary Care Provider [phone] Encounter Details Date Type Department Care Team (Latest Contact Info) Description 02/15/2025 Travel Social History Tobacco Use Types Packs/Day [...] Description 05/08/2025 2:30 PM EST Office Visit [facility] MED[facility]INE [address] [place] [phone] Name, MD Pancho [address] [place] [address] documented as of this encounter Visit Diagnoses Not on filedocumented in this encounter Additional Health Concerns Assessment Noted Time PHQ-9 Depression Total Score: 10 025 2:47 PM EDT documented as of this encounter Care Teams Flight Operations Engineer Relationship Specialty Start Date End Date Name, MD Pancho [address] [place] [address] PCP - General Internal Medicine 10/24/24 documented as of this encounter
--- OUTSIDE RECORDS SUMMARY | 2025-02-15 16:43 | XMS_ITS | Clinical Summary ---
Author Organization [employer] Address [address] [facility] [address] [place] [address] Care Team Providers Care Television Technician Name Role Phone Name, Pancho AGUILAR Primary Care Provider [phone] Allergies Active Allergy Reactions Criticality Noted Date [...] mg by mouth 2 times daily. Active atorvastatin (Lipitor) 40 MG tablet Take 40 mg by mouth Once per day. 07/12/19 25 Active albuterol 108 (90 Base) MCG/ACT inhaler Inhale 2 puffs every 4 (four) hours if needed. 09/27/19 25 Active albuterol (2.5 MG/3ML) 0.083% nebulizer solution Inhale 2.5 mg every 6 (six) hours if needed. 09/09/19 25 Active albuterol (2.5 MG/3ML) 0.083% nebulizer solution Take 3 mL (2.5 mg) by nebulization every 6 (six) hours if needed for wheezing. 75 mL 10/25/19 25 026 Active fluticasone furoate (Arnuity Ellipta) 100 MCG/ACT inhaler Inhale 1 puff Once per day. Rinse mouth with water after use to reduce aftertaste and incidence of candidiasis. Do not swallow. 1 each 10/25/19 25 026 Active lidocaine (Lidoderm) 5 % patch Apply 1 patch topically Once per day. Remove & discard patch within 12 hours or as directed by MD. 30 patch 1 10/25/19 25 Active amLODIPine (Norvasc) 10 MG tablet Take 1 tablet (10 mg) by mouth Once per day. 30 tablet 11 02/16/20 25 Active omeprazole (PriLOSEC) [address] capsule Take 2 capsules (40 mg) by mouth Once per day. 60 capsule 11 02/16/20 25 Active celecoxib (CeleBREX) 200 MG capsule Take 1 capsule (200 mg) by mouth 2 times daily for 20 days. 40 capsule 02/16/20 25 025 Active amLODIPine (Norvasc) 10 MG tablet Take 10 mg by mouth Once per day. 025 Discontinued(R eorder (will not trigger notification to Pharmacy)) omeprazole (PriLOSEC) [address] capsule Take 40 mg by mouth Once per day. 025 Discontinued(R eorder (will not trigger notification to Pharmacy)) Active Problems Problem Noted Date Diagnosed Date Morbid obesity 10/24/2024 Tobacco dependence 10/24/2024 Substance dependence 04/07/2024 Gastroesophageal reflux disease 04/07/2024 Hypertension 04/07/2024 Methadone dependence 04/07/2024 Seizure 04/07/2024 Encounters Date Type Department Care Team Description 02/15/2025 3:30 PM EDT Office Visit [facility] [address] [place] [phone] Pancho Cueto MD Hypertension, unspecified type (Primary Dx); Gastroesophageal reflux disease, unspecified whether esophagitis present; Chronic pain of left knee; Health care maintenance; Encounter for screening for malignant neoplasm of breast, unspecified screening modality; Screening for cervical cancer; Screen for colon cancer; Encounter for immunization 02/15/2025 Travel 02/14/2025 Telephone [facility] [address] [place] [phone] Pancho Cueto MD chart prep from Last 3 Months Immunizations Immunization Administration Dates Next Due Tdap 02/15/2025 Social History Tobacco Use Types Packs/Day Years [...] Mass Index 41.91 02/15/2025 2:43 PM EDT Plan of Treatment Upcoming Encounters Date Type Department Care Team (Late st Contact Info) Description 05/08/2025 2:30 PM EST Office Visit [facility] [address] [place] [address] Name, MD Pancho [address] [place] [address] Health Maintenance Due Date Last Done Comments CT Colonography 1973 Colonoscopy 1973 Colorectal Cancer Screening 1973 FIT DNA/Cologuard 1973 FIT 1973 FOBT 1973 HIV Screening 1973 Sigmoidoscopy 1973 Family Planning (PISQ) 1988 Hepatitis C Screening 1991 Hepatitis B Vaccines (1 of 3 - 19+ 3-dose series) 1992 Pneumococcal Vaccine: 50+ Years (1 of 2 - PCV) 1992 Pap Smear 1994 Cervical Cancer Screening 2003 HPV/Cotest 2003 Mammogram 2013 Zoster Vaccines (1 of 2) 2023 COVID-19 Vaccine ( - 2023-2 5 season) 2024 Influenza Vaccine (#1) 2025 Depression Monitoring 04/26/2025 10/24/2024 , 10/24/2024 SDOH Screening 10/11/2025 10/11/2024 Alcohol/Substance Use Screening 10/24/2025 10/24/2024 Disability Screening 10/24/2025 10/24/2024 Diabetes: Hemoglobin A1C 10/26/2025 10/26/2024 Tobacco Screening 02/15/2026 02/15/2025 Lipid Panel 10/26/2029 10/26/2024 DTaP/Tdap/Td Vaccines (2 - T d or Tdap) 02/15/2035 02/15/2025 RSV Patients and Patients Aged 60 years or older (1 - 1-dose 75+ series) 2048 HIB Vaccines Aged Out No longer eligi ble based on patient's age to complete this topic HPV Vaccines Aged Out No longer eligi ble based on patient's age to complete this topic Hepatitis A Vaccines Aged Out No long er eligible based on patient's age to complete [...] VIEWS LEFT Routine 02/15/2025 2:58 PM EDT HEMOGLOBIN A1C Routine 10/26/2024 10:05 AM EDT Substance dependence (CMS/HCC) Seizure (CMS/HCC) Morbid obesity (CMS/HCC) Mood disorder (CMS/HCC) Moderate persistent asthma without complication Acute low back pain with left-sided sciatica, unspecified back pain laterality LIPID PANEL, STANDARD Routine 10/26/2024 10:05 AM EDT Substance dependence (CMS/HCC) Seizure (CMS/HCC) Morbid obesity (CMS/HCC) Mood disorder (CMS/HCC) Moderate persistent asthma without complication Acute low back pain with left-sided sciatica, unspecified back pain laterality from Last 3 Months or Most Recently Relevant to Health Maintenance Results * XR Knee 4+ Views Left (02/15/2025 2:58 PM EDT) Anatomical Region Laterality Modality Lower Extremities, Knee Left [facility] 02/15/2025 2:58 PM EDT Narrative 02/15/2025 4:00 PM EDT [address] [address] XRay Report Signed Patient: Deanne Underwood MR#: [id number] : 1975 Acct:[id number] Age/Sex: 49 / F ADM Date: 02/15/25 Loc: HO.[facility]HCX Attending Dr: Pancho Cueto MD Ordering Physician: Pancho Cueto MD Date of Service: 02/15/25 Procedure(s): XR knee LT 4V Accession Number(s): [id number] cc: Pancho Cueto MD EXAMINATION: XR KNEE, [...] 02/15/25 1556 DD/ 1458 TD/TT: 02/15/25 1500 Spikemaking Supervisor: Procedure Note Donotuseinterpreter, Image - 02/15/2025 [place] [address] XRay Report Signed Patient: Deanne UnderwoodMR#: [id number] : 1975Acct:[id number] Age/Sex: 49 / FADM Date: 02/15/25 [facility]: Pancho Cueto MD Ordering Physician: Pancho Cueto MD Date of Service: 02/15/25 Procedure(s): XR knee LT 4V Accession Number(s): [id number] cc: Pancho Cueto MD EXAMINATION: XR KNEE, [...] 02/15/25 1556 DD/ 1458 TD/TT: 02/15/25 1500 Spikemaking Supervisor: us Pancho Cueto MD IMG XR PROCEDURES Final Result * (ABNORMAL) Hemoglobin A1c (10/26/2024 10:05 AM EDT) Hemoglobin A1c 6.1(H) <6.0 % [facility] Comment:Hemoglobin A1C Refer ence Range Adults: 4.8 - 6.0 % Non diabetic: < 6.0 % Goal: < 7.0 %Additional Action Suggested: > 8.0 %Note: Hemoglobin A1c results are invalid for patients with abnormal amounts of HbF. Blood transfusions may impact the HbA1c concentration in the patient sample. Estimated Average Glucose 128 mg/dL [facility] Comment:eAG = Estimated ave rage glucose which is %A1C expressed asaverage glucose, using the formula of the E3D-ErrsdycFbruzvx Glucose study (ADAG), Diabetes Care, Vol.31,#8,Jan. 2007 Blood Venous blood specimen / Unknown 10/26/2024 10:05 AM EDT 10/26/2024 10:57 AM EDT us Pancho Cueto MD LAB BLOOD ORDERABLES Final Resul t [facility] [place], [place] [id number] [phone] * Lipid Panel, Standard (10/26/2024 10:05 AM EDT) Triglycerides 107 <150 mg/dL [facility] Comment:Desirable Triglyceri de: less than 150 mg/dLBorderline High Triglyceride 150-199 mg/dLHigh Triglyceride: 200-499 mg/dLVery High Triglyceride: greater than or equal to 5OO mg/dL Cholesterol 147 <200 mg/dL [facility] Comment:Desirable Cholestero l: less than 200 mg/dLBorderline High Cholesterol: 200-239 mg/dLHigh Cholesterol: greater than 239 mg/dL LDL Cholesterol Calculated 77 <100 mg/dL [facility] Comment:Desirable LDL: less than 100 mg/dLNear Optimal/Above Optimal LDL: 110- 129 mg/dLBorderline High LDL: 130-159 mg/dLHigh LDL: 160-189 mg/dLVery High LDL: greater than or equal to 190 mg/dL HDL Cholesterol 49 >40 mg/dL [facility] Comment:Desirable HDL: great er than 40 mg/dL Note: This HDL assay may give artificially low results in patients with liver disease. Blood Venous blood specimen / Unknown 10/26/2024 10:05 AM EDT 10/26/2024 10:59 AM EDT us Pancho Cueto MD LAB BLOOD ORDERABLES Final Resul t [facility] [address] [place] [phone] from Last 3 Months or Most Recently Relevant to Health Maintenance Insurance [facility] C3 Care Teams Television Technician Relationship Specialty Start Date End Date Name, MD Pancho [address] [place] [id number] PCP - General Internal Medicine 10/24/24
== END 2025-02-15 15:28 | disposition home or self-care (01) ==
LOC: HO.HHCX 15:27
PROVIDERS: PCP Internal Medicine Geriatric Medicine; Visit Provider Internal Medicine Geriatric Medicine
DX: M25.562 Pain in left knee (principal); G89.29 Other chronic pain
CPT/HCPCS: 73564

== ENCOUNTER → 2025-02-15 15:38 | Outpatient (BNV) | payer MEDICAID, SELFPAY | PROVIDERS: PCP Internal Medicine Geriatric Medicine; Visit Provider Radiology Diagnostic Radiology | DX: M17.12 Unilateral primary osteoarthritis, left knee (principal) | CPT/HCPCS: 73564 ==

== ENCOUNTER 2025-04-17 10:24 | Outpatient (REF) | payer MEDICAID, SELFPAY | END 2025-04-17 10:25 | disposition home or self-care (01) | LOC: HO.MAMMO 10:24 | PROVIDERS: PCP Internal Medicine Geriatric Medicine; Visit Provider Internal Medicine Geriatric Medicine | DX: Z12.31 Encounter for screening mammogram for malignant neoplasm of breast (principal) | CPT/HCPCS: 77063; 77067 ==

== ENCOUNTER → 2025-04-17 10:45 | Outpatient (BNV) | payer MEDICAID, SELFPAY | PROVIDERS: PCP Internal Medicine Geriatric Medicine; Visit Provider Internal Medicine | DX: Z12.31 Encounter for screening mammogram for malignant neoplasm of breast (principal) | CPT/HCPCS: 77063; 77067 ==